=== PATIENT | female | born 1970 | race Caucasian/White ===

== ENCOUNTER 2018-09-24 15:47 | Emergency (ER) | payer OTHER ==
[2018-09-24] MEDS ORDERED: HYDROcod/ACETAM 5/325 MG TABLET PO STA (16:17)
--- NOTE | 2018-09-24 16:18 | ED Physician Documentation ---
PD HPI MAJOR TRAUMA - Stated complaint Stated Complaint: GLF - L SHOULDER PX - Chief complaint Chief Complaint: Ext Problem - History obtained from History obtained from: Family - History of Present Illness Mechanism of injury: Fell (She had a slip and fall yesterday landing on her left side on grass. She complains of moderate left shoulder and low back pain. No head injury or loss of consciousness. No syncope.) Review of Systems Constitutional: reports: Reviewed and negative Cardiac: reports: Reviewed and negative Respiratory: reports: Reviewed and negative PD PAST MEDICAL HISTORY - Past Medical History Past Medical History: Yes Cardiovascular: Other Respiratory: COPD Endocrine/Autoimmune: Type 2 diabetes Psych: Depression, Post traumatic stress disorder - Past Surgical History Past Surgical History: Yes General: Cholecystectomy, Appendectomy /RN LPN LVN: section - Present Medications Home Medications: Ambulatory Orders Medication Instructions Recorded Confirmed Hydrocodone/Acetaminophen 1 - 2 each PO Q6H PRN #10 tablet 09/24/18 [Hydrocodon-Acetaminophen 5-325] - Allergies Allergies/Adverse Reactions: Allergies Allergy/AdvReac Type Severity Reaction Status Date / Time bee venom protein (honey bee) Allergy Anaphylaxis Verified 09/24/18 15:52 - Social History Does the pt smoke?: No Smoking Status: Never smoker Does the pt drink ETOH?: Yes Does the pt have substance abuse?: No - Immunizations Immunizations are current?: Yes - POLST Patient has POLST: No PD ED PE NORMAL - Vitals Vital signs reviewed: Yes - General General: Alert and oriented X 3, No acute distress - Neck Neck: Supple, no meningeal sign, No bony TTP - Cardiac Cardiac: RRR, No murmur - Respiratory Respiratory: No respiratory distress, Clear bilaterally - Abdomen Abdomen: Non tender - Back Back: Other (No real tenderness of the low back but has some pain with twisting and bending.) - Extremities Extremities: Other (Mild tenderness over the top of the shoulder. Can abduct only to 90 degrees. No pain with internal and external rotation.) - Neuro Neuro: Alert and oriented X 3, Normal speech Results - Vitals Vitals: Vital Signs - 24 hr 09/24/18 15:50 Temperature 36.9 C Heart Rate 91 Respiratory 18 Rate Blood Pressure 159/71 H O2 Saturation 95 Oxygen O2 Source Room air - Rads (name of study) X-rays of the left shoulder and lumbar spine Radiology: EMP read contemporaneously (Degenerative changes in the spine without acute fracture; no fracture in the shoulder, spurring suggesting calcific tendinopathy of the rotator cuff.) Departure - Departure Disposition: 01 Home, Self Care Clinical Impression: Low back strain Qualifiers: Encounter type: initial encounter Qualified Code(s): S39.012A - Strain of muscle, fascia and tendon of lower back, initial encounter Contusion of left shoulder Qualifiers: Encounter type: initial encounter Qualified Code(s): S40.012A - Contusion of left shoulder, initial encounter Condition: Good Record reviewed to determine appropriate education?: Yes Instructions: ED Low Back Pain Injury, ED Contusion Shoulder Prescriptions: Hydrocodone/Acetaminophen [Hydrocodon-Acetaminophen 5-325] 1 - 2 each PO Q6H PRN #10 tablet PRN Reason: pain Comments: Follow-up with your doctor after the weekend, return if worse or if new symptoms develop. Your blood pressure was elevated today on check into the emergency department. This does not mean that you have hypertension, it is a common phenomenon to come to the emergency department and have elevated blood pressure. I recommend that you see your primary care physician within the week to have it rechecked when you are feeling better. Do not drink or drive while taking narcotic pain medication. Note that many narcotic pain relievers also contain Tylenol/acetaminophen. Please ensure that your total dose of acetaminophen from all sources does not exceed 3 g (3000 mg) per day. You may get constipated while on this medication. Take a stool softener such as Colace twice a day while you are on it. Also add an liuj-eic-ihtlyri laxative such as senna or MiraLAX on any day that you do not have a bowel movement. If you received a narcotic pain medication or sedative while in the emergency department, do not drive for the next 24 hours.
--- NOTE | 2018-09-24 16:56 | XRAY Report ---
Reason: back/shoulder inj p fall Procedure Date: 09/24/2018 Accession Number: [id number] / [id number] Procedure: XR - Shoulder 3 View LT CPT Code: FULL RESULT: EXAM: LEFT SHOULDER RADIOGRAPHY EXAM DATE: 09/24/2018 04:26 PM. CLINICAL HISTORY: Back/shoulder inj p fall. COMPARISON: None. TECHNIQUE: 3 views. FINDINGS: Bones: Negative for acute fracture. There is bony spurring at the greater tuberosity with an adjacent soft tissue ossification. Joints: The glenohumeral and acromioclavicular joints are normal. Soft tissues: The visualized hemithorax is unremarkable. No soft tissue swelling. IMPRESSION: 1. Negative for an acute fracture or subluxation. 2. Spurring in findings of calcific tendinopathy of the rotator cuff. [facility]
--- NOTE | 2018-09-24 16:59 | XRAY Report ---
Reason: back/shoulder inj p fall Procedure Date: 09/24/2018 Accession Number: [id number] / [id number] Procedure: XR - Lumbar Spine 2 View CPT Code: FULL RESULT: EXAM: LUMBOSACRAL SPINE RADIOGRAPHY EXAM DATE: 09/24/2018 04:26 PM. CLINICAL HISTORY: Back/shoulder inj p fall. COMPARISONS: None. TECHNIQUE: 2 views. FINDINGS: Alignment: Normal. No spondylolisthesis or scoliosis. Bones: Five [id number] lumbar vertebral bodies are present. No fractures or bone lesions. Disks: There is mild disk height loss at L4-L5. Mild anterior disk osteophyte spurring at L2-L3, L3-L4, and L4-L5. Facets: Unremarkable. Sacroiliac Joints: Unremarkable. Soft Tissues: There are surgical clips in the right upper quadrant of the abdomen. No dilated bowel loops. IMPRESSION: No fracture or subluxation. Mild lower lumbar spine disk degenerative disease at L4-L5. [facility]
[2018-09-24 17:07] VITALS: BP 154/71
== END 2018-09-24 17:11 | disposition home or self-care (01) ==
LOC: ED 15:47
DX: S40.012A Contusion of left shoulder, initial encounter (principal); S39.012A Strain of muscle, fascia and tendon of lower back, initial encounter; W01.0XXA Fall on same level from slipping, tripping and stumbling without subsequent striking against object, initial encounter; E11.9 Type 2 diabetes mellitus without complications; R03.0 Elevated blood-pressure reading, without diagnosis of hypertension
CPT/HCPCS: 72100; 73030; 99283; A9270